=== PATIENT | female | born 1995 | race Caucasian/White ===

== ENCOUNTER 2017-03-20 17:15 | Emergency (ER) | payer OTHER ==
[~2017-03-20] VITALS: Ht 172.7 cm; Wt 65.0 kg
[2017-03-20 17:18] VITALS: TEMP 37.2; Ht 172.7 cm; Wt 65.0 kg
[2017-03-20] MEDS ORDERED: IBUPROFEN 200 MG TAB PO STA (17:31)
[2017-03-20] MEDS ORDERED: ACETAMINOPHEN 500 MG TAB PO STA (17:31)
--- NOTE | 2017-03-20 18:12 | DIAGNOSTIC IMAGING REPORT ---
RIGHT ANKLE 3 VIEWS CLINICAL HISTORY: Fall with right ankle injury. FINDINGS: 3 views the right ankle are obtained. No prior studies are available for comparison at the time of dictation. The skeletal structures are well mineralized. There is a minimally distracted spiral fracture of the distal fibula with overlying soft tissue edema. The tibia appears intact. The ankle mortise appears maintained. A joint effusion is noted. IMPRESSION: Minimally distracted spiral fracture of the distal fibula with associated joint effusion and soft tissue edema. Electronically signed by: Phong Yousif M.D. 03/20/2017 6:11 PM Dictated Date/Time: 03/20/2017 6:10 PM
--- NOTE | 2017-03-20 18:16 | EMERGENCY ROOM VISIT NOTE ---
History First contact with patient: 17:20 Chief Complaint: ANKLE PAIN Stated Complaint: PSSBLE BROKEN R LATERAL ANKLE History of Present Illness The patient is a 21 year old female who presents to the Emergency Room via ambulance with complaints of "possible broken right lateral ankle". The patient states that earlier today she was climbing a rock wall, and I approximate 14 feet and landed on both of her feet, but inverted the right ankle. She notes a crack/pop sensation in the right lateral malleolus of which now she rates her pain as an 8/10. She applied ice immediately. She notes that she can move her toes but there is pain with this. There is no radiation of the pain. She denies chance of . Review of Systems A complete 6-point Review of Systems was discussed with the patient, with pertinent positives and negatives listed in the History of Present Illness. All remaining Review of Systems questions can be considered negative unless otherwise specified. Past Medical/Surgical History No pertinent Family History No pertinent. Physical Exam Vital Signs Date Time Temp Pulse Resp B/P (MAP) Pulse Ox O2 Delivery O2 Flow Rate FiO2 03/20/17 19:34 75 16 115/76 98 03/20/17 17:18 37.2 97 18 108/58 92 Room Air Physical Exam VITAL SIGNS - Vital signs and nursing notes were reviewed. Stable. GENERAL -21-year-old female appearing her stated age who is in no acute distress. Communicates well with provider and answers questions appropriately. SKIN - Without rashes. Skin overlying the right ankle is unremarkable. EXTREMITIES - No clubbing or peripheral cyanosis. No pretibial edema present. Tenderness overlying the right lateral malleolus. Decreased range of motion secondary to pain. No proximal or distal tenderness. The joint above and below are unremarkable. Medical Decision & Procedures ER Provider Diagnostic Interpretation: RIGHT ANKLE 3 VIEWS CLINICAL HISTORY: Fall with right ankle injury. FINDINGS: 3 views the right ankle are obtained. No prior studies are available for comparison at the time of dictation. The skeletal structures are well mineralized. There is a minimally distracted spiral fracture of the distal fibula with overlying soft tissue edema. The tibia appears intact. The ankle mortise appears maintained. A joint effusion is noted. IMPRESSION: Minimally distracted spiral fracture of the distal fibula with associated joint effusion and soft tissue edema. Electronically signed by: Phong Yousif M.D. 03/20/2017 6:11 PM Dictated Date/Time: 03/20/2017 6:10 PM Medications Administered Medications (Trade) Dose Ordered Sig/Crissy Route Start Time Stop Time Status Last Admin Dose Admin Acetaminophen (Tylenol Tab) 500 mg NOW STAT PO 03/20/17 17:31 03/20/17 17:33 DC 03/20/17 17:39 500 MG Ibuprofen (Advil Tab) 400 mg NOW STAT PO 03/20/17 17:31 03/20/17 17:33 DC 03/20/17 17:39 400 MG Medical Decision Patient was seen and evaluated as above. She presents to us today with right ankle pain. X-ray was obtained with results as above. She was offered pain medication and was given Tylenol and ibuprofen. She declines narcotic pain medication. With the fracture revealing a nondisplaced fibula fracture I believe that a well-padded posterior and stirrup Ortho-Glass are appropriate. She'll be made nonweightbearing with crutches. She is to follow with orthopedics regarding her injury here today. She is to call him to schedule follow-up. She has noticed that she will likely. Orthopedics back home. I believe this is reasonable. She at this time was educated upon management, educated upon worrisome symptoms which to return, had questions answered prior to discharge, and was discharged home in good condition. In the evaluation and treatment of this patient, the following differential diagnoses were considered: Ankle Fracture, Ankle Sprain, Distal Fibula Fracture , Distal Tibia Fracture, Foot Fracture, [place] Fracture. Impression Primary Impression: Right ankle pain Additional Impression: Closed fibular fracture Departure Information Dispostion Home / Self-Care Condition GOOD Referrals No Doctor, Assigned (PCP) Khurram Ron D.O. Patient Instructions My [facility] Additional Instructions You have been treated in the Emergency Department for a right Ankle injury. You have received pain medicine in the emergency department which impairs your ability to operate a vehicle. It is illegal for you to drive after receiving these medicines. For pain control, you can use the following [id number] medicines (if >12 yo): - Regular strength (325mg/tab) Tylenol (acetaminophen) 2 tabs every 4-6 hours as needed. Do not exceed 12 tablets in a 24 hour period. Avoid taking more than 3 grams (3000 mg) of Tylenol per day. This includes any other sources of acetaminophen you may take on a regular basis. - Regular strength (200 mg/tab) Advil (ibuprofen) 1-2 tabs every 4-6 hours as needed. Do not exceed a dose of 3200 mg per day. If this is a recent injury (<24 hrs), ice can be applied to the area of pain for the first 3 days to help decrease pain and inflammation. You have been provided the number for an Orthopaedic Surgeon. You should call this number as soon as possible to establish a follow-up visit from today's Emergency Department visit. Keep the ankle brace/splint in place until cleared by Orthopedics. Use the crutches you have been provided to keep ALL weight off of the ankle until weight bearing is tolerable. Return to the Emergency Department if your current symptoms worsen despite treatment course outlined above, or if you develop any of the following symptoms : intractable pain despite aforementioned treatment course or new onset of numbness or tingling of the foot. RIGHT ANKLE 3 VIEWS CLINICAL HISTORY: Fall with right ankle injury. FINDINGS: 3 views the right ankle are obtained. No prior studies are available for comparison at the time of dictation. The skeletal structures are well mineralized. There is a minimally distracted spiral fracture of the distal fibula with overlying soft tissue edema. The tibia appears intact. The ankle mortise appears maintained. A joint effusion is noted. IMPRESSION: Minimally distracted spiral fracture of the distal fibula with associated joint effusion and soft tissue edema. Electronically signed by: Phong Yousif M.D. 03/20/2017 6:11 PM Dictated Date/Time: 03/20/2017 6:10 PM Problem Qualifiers
[2017-03-20 19:34] VITALS: BP 115/76; PULSE 75; O2SAT 98
== END 2017-03-20 19:35 | disposition home or self-care (01) ==
LOC: C.EDB 17:17 → C.EDD 19:35
DX: S82.441A Displaced spiral fracture of shaft of right fibula, initial encounter for closed fracture (principal); W17.89XA Other fall from one level to another, initial encounter; Y93.31 Activity, mountain climbing, rock climbing and wall climbing